=== PATIENT | female | born 1935 | race Caucasian/White ===

== ENCOUNTER 2020-07-14 13:46 | Emergency (ER) | payer MEDICARE ==
[~2020-07-14] VITALS: Ht 160 cm; Wt 76.8 kg
[~2020-07-14 13:46] MED LIST: ASCO500T59 PO; CHLO500T4 PO; CYAN500L4 PO; ESOM20CA PO; ESTR0.5T PO; FOLI1TAB5 PO; GLUC1TAB21 PO; HYDR-3240 PO; KRIL500C PO; LEVO125T PO; LISI-467 PO; MAGNESIUM PO; OXYC-302 PO; RED600CA2 PO; UBID1CAP51 PO
[2020-07-14] MEDS ORDERED: LEVO88TA2 PO (14:18)
[2020-07-14] MEDS ORDERED: HYDR25TA6 PO (14:18)
[2020-07-14] MEDS ORDERED: SODIUM CHLORIDE FLUSH 10ML SYR IVF ONE (15:00)
[2020-07-14] MEDS ORDERED: SODIUM CHLORIDE 0.9% 1,000ML IVBOLUS ONE (15:00)
[2020-07-14] MEDS ORDERED: MECLIZINE CHEWABLE 25 MG TAB PO ONE (15:00)
--- NOTE | 2020-07-14 15:08 | NUR ---
PIV PLACED, LABS DRAWN AND COLLECTED BY SQL ANALYST. IVF RUNNING PER OCT. PT AT CT.
[2020-07-14] MEDS ORDERED: MECLIZINE CHEWABLE 25 MG TAB ONE (15:10)
[2020-07-14 15:14] VITALS: BP 153/79
--- NOTE | 2020-07-14 15:16 | NUR ---
PT BACK FROM CT. SPARK TESTER PER OCT.
[2020-07-14 15:28] LABS: BASOPHILS % (AUTO) 0 % (0-1); EOSINOPHILS % (AUTO) 0 % (1-7); LYMPHOCYTES % (AUTO) 12 % (22-44); MEAN CORPUSCULAR HEMOGLOBIN 31.7 pg (27.0-34.8); MEAN CORPUSCULAR HGB CONC 33.9 g/dL (32.4-35.8); MONOCYTES % (AUTO) 5 % (2-9); NEUTROPHILS % (AUTO) 82 % (42-75); PLATELET COUNT 193 x10^3/uL (130-400); RED BLOOD COUNT 4.56 x10^6/uL (3.82-5.3)
[2020-07-14 15:31] LABS: MD NO
[2020-07-14 15:33] LABS: CHLORIDE 107 mmol/L (98-107)
[2020-07-14 15:34] LABS: ANION GAP 4 mmol/L (5-15); CALCIUM 10.1 mg/dL (8.5-10.1); CREATININE 1.34 mg/dL (0.55-1.02)
--- NOTE | 2020-07-14 16:00 | NUR ---
MD AT BEDSIDE TO UPDATE PT ON POC.
== END 2020-07-14 16:30 | disposition home or self-care (01) ==
LOC: ED 16:23
DX: R42 Dizziness and giddiness (principal); N28.9 Disorder of kidney and ureter, unspecified; R00.0 Tachycardia, unspecified; R51.9 Headache, unspecified; I10 Essential (primary) hypertension
CPT/HCPCS: 36415; 70450; 80048; 82040; 85025; 93005; 96360; 99285; J7030